=== PATIENT | male | born 2000 | race African-American/Black ===

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

== ENCOUNTER 2018-04-15 12:20 | Emergency (ER) | payer MEDICAID, OTHER ==
[2018-04-15 12:34] VITALS: BP 140/81
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
--- NOTE | 2018-04-15 13:16 | RADIOLOGY REPORT (SQ) ---
EXAM DESCRIPTION: WRIST LEFT 3 VIEWS COMPLETED DATE/TIME: 04/15/2018 1:05 pm REASON FOR STUDY: pain s/p fall COMPARISON: None. NUMBER OF VIEWS: Three views. TECHNIQUE: AP, lateral, and oblique radiographic images acquired of the left wrist. LIMITATIONS: None. FINDINGS: MINERALIZATION: Normal. BONES: No acute fracture or dislocation. No worrisome bone lesions. Normal alignment. SOFT TISSUES: No soft tissue swelling. No foreign body. OTHER: No other significant finding. IMPRESSION: NEGATIVE STUDY OF THE LEFT WRIST. NO RADIOGRAPHIC EVIDENCE OF ACUTE INJURY. TECHNICAL DOCUMENTATION: JOB ID: [id number] [employer]- All Rights Reserved Reading location - IP/workstation name: [email or web address]
== END 2018-04-15 13:38 | disposition home or self-care (01) ==
LOC: ER 12:20
DX: M25.532 Pain in left wrist (principal); M79.601 Pain in right arm; Y04.0XXA Assault by unarmed brawl or fight, initial encounter; W19.XXXA Unspecified fall, initial encounter; F17.200 Nicotine dependence, unspecified, uncomplicated
CPT/HCPCS: 99283; 73110; L3908 ×2

== ENCOUNTER 2018-04-19 22:12 | Emergency (ER) | payer MEDICAID ==
[2018-04-19 22:38] VITALS: BP 140/86
--- NOTE | 2018-04-19 23:21 | ER Document Report ---
ED General - General Chief Complaint: Psych Problem Stated Complaint: PSYCH EVAL Time Seen by Provider: 04/19/18 22:41 Cannot obtain history due to: Mentally challenged, Uncooperative Notes: Patient is a 18-year-old male with a past medical history of schizophrenia, currently off all medications who presents with concerns of increasing auditory and visual hallucinations. The patient himself was incapable providing appropriate history, I have seen him several times in the past and this is typical where he is unable to provide meaningful history. His mother is usually with him although she is not here this evening, apparently dropped him off the emergency department. She has not available for additional history. TRAVEL OUTSIDE OF THE [place] IN LAST 30 DAYS: No - Related Data Allergies/Adverse Reactions: No Known Allergies Allergy (Verified 04/15/18 12:25) Past Medical History - General Information source: Patient Cannot obtain history due to: Mentally challenged, Altered mental status - Social History Smoking Status: Unknown if Ever Smoked Frequency of alcohol use: None Drug Abuse: None Lives with: Parents Family History: Reviewed & Not Pertinent Pulmonary Medical History: Reports: Hx Pneumonia Renal/ Medical History: Denies: Hx Peritoneal Dialysis Psychiatric Medical History: Reports: Hx Attention Deficit Hyperactivity Disorder, Hx Bipolar Disorder, Hx Depression, Hx Schizophrenia - Immunizations Immunizations up to date: Yes Review of Systems - Review of Systems Notes: Constitutional: Negative for fever. HENT: Negative for sore throat. Eyes: Negative for visual changes. Cardiovascular: Negative for chest pain. Respiratory: Negative for shortness of breath. Gastrointestinal: Negative for abdominal pain, vomiting or diarrhea. Genitourinary: Negative for dysuria. Musculoskeletal: Negative for back pain. Skin: Negative for rash. Neurological: Negative for headaches, weakness or numbness. 10 point ROS negative except as marked above and in HPI. Physical Exam - Vital signs Vitals: Temp Pulse Resp BP Pulse Ox 99.2 F 72 16 140/86 H 98 04/19/18 22:36 04/19/18 22:36 04/19/18 22:36 04/19/18 22:36 04/19/18 22:36 Interpretation: Normal Notes: PHYSICAL EXAMINATION: GENERAL: Somewhat disheveled, agitated but in no overt distress HEAD: Atraumatic, normocephalic. EYES: Pupils equal round and reactive to light, extraocular movements intact, sclera anicteric, conjunctiva are normal. ENT: nares patent, oropharynx clear without exudates. Moist mucous membranes. NECK: Normal range of motion, supple without lymphadenopathy LUNGS: Breath sounds clear to auscultation bilaterally and equal. No wheezes rales or rhonchi. HEART: Regular rate and rhythm without murmurs ABDOMEN: Soft, nontender, normoactive bowel sounds. No guarding, no rebound. No masses appreciated. EXTREMITIES: Normal range of motion, no pitting or edema. No cyanosis. NEUROLOGICAL: No focal neurological deficits. Moves all extremities spontaneously and on command. PSYCH: Somewhat agitated, eyes are moving around rapidly, does not make appropriate eye contact. Seems very suspicious of me SKIN: Warm, Dry, normal turgor, no rashes or lesions noted. Course - Re-evaluation Re-evalutation: 04/19/18 23:20 Patient presents apparently with concerns of increasing hallucinations and paranoia although he is a profoundly poor historian, does not give me any meaningful information. His mother dropped him off although she is not available for history. The patient does appear extremely paranoid on exam, eyes starting around, does not speak in an intelligible fashion. Will proceed with medical screening labs, IVC will be completed, behavioral health consultation has been ordered. 04/20/18 01:27 The patient has become quite agitated, attempting to leave his room repeatedly, refusing to comply with instructions from security and staff. At this point he is acting in a manner that is dangerous to both himself and staff. He unfortunately required restraints, I am haloperidol 10 mg will also be administered. - Vital Signs Vital signs: Temp Pulse Resp BP Pulse Ox 99.2 F 72 16 140/86 H 98 04/19/18 22:36 04/19/18 22:36 04/19/18 22:36 04/19/18 22:36 04/19/18 22:36 - Laboratory Result Diagrams: 04/19/18 23:16 04/19/18 23:16 Laboratory results interpreted by me: 04/19/18 04/19/18 23:16 23:16 Hgb 12.6 L Hct 37.4 L Salicylates < 1.0 L Acetaminophen < 10 L - EKG Interpretation by Me Additional EKG results interpreted by me: 04/20/18 01:29 Sinus rhythm. Rate 53. No ST elevations or depressions. QTC is 399. Discharge - Discharge Clinical Impression: Agitation, Noncompliance with medication regimen Schizophrenia Qualifiers: Schizophrenia type: unspecified Qualified Code(s): F20.9 - Schizophrenia, unspecified
[2018-04-19 23:27] LABS: ABSOLUTE BASOPHILS # (AUTO) 0.1 10^3/uL (0.0-0.2); ABSOLUTE EOSINOPHILS # (AUTO) 0.1 10^3/uL (0.0-0.6); ABSOLUTE LYMPHOCYTES (AUTO) 1.2 10^3/uL (0.5-4.7); ABSOLUTE MONOCYTES (AUTO) 0.4 10^3/uL (0.1-1.4); ABSOLUTE NEUT (AUTO) 5.5 10^3/uL (1.7-8.2); BASOPHILS % (AUTO) 0.8 % (0-2); EOSINOPHILS % (AUTO) 0.7 % (0-6); HEMATOCRIT 37.4 % (37.9-51.0); HEMOGLOBIN 12.6 g/dL (13.5-17.0); LYMPHOCYTES % (AUTO) 16.5 % (13-45); MEAN CORPUSCULAR HEMOGLOBIN 27.5 pg (27.0-33.4); MEAN CORPUSCULAR HGB CONC 33.6 g/dL (32.0-36.0); MEAN CORPUSCULAR VOLUME 82 fl (80-97); PLATELET COUNT 202 10^3/uL (150-450); RED BLOOD COUNT 4.57 10^6/uL (4.35-5.55); RED CELL DISTRIBUTION WIDTH 12.6 % (11.5-14.0); TOTAL CELLS COUNTED % (AUTO) 100 %; WHITE BLOOD COUNT 7.1 10^3/uL (4.0-10.5)
[2018-04-19 23:42] LABS: ACETAMINOPHEN < 10 ug/mL (10-30); ALANINE AMINOTRANSFERASE 33 U/L (21-72); ALCOHOL < 10 mg/dL (NONE DETECTED); ALKALINE PHOSPHATASE 86 U/L (38-126); ANION GAP 9 (5-19); ASPARTATE AMINO TRANSFERASE 25 U/L (17-59); BILIRUBIN,DIRECT 0.2 mg/dL (0.0-0.4); BILIRUBIN,TOTAL 0.5 mg/dL (0.2-1.3); BLOOD UREA NITROGEN 10 mg/dL (7-20); CALCIUM 9.5 mg/dL (8.4-10.2); CARBON DIOXIDE 27 mmol/L (22-30); CHLORIDE 106 mmol/L (98-107); GLUCOSE 100 mg/dL (75-110); POTASSIUM 3.7 mmol/L (3.6-5.0); SALICYLATE < 1.0 mg/dL (2.0-20.0); SODIUM 142.4 mmol/L (137-145); TOTAL PROTEIN 7.1 g/dL (6.3-8.2)
[2018-04-20] MEDS ORDERED: HALOPERIDOL 5 MG TABLET PO ONE (01:24)
[2018-04-20] MEDS ORDERED: HALOPERIDOL LACTATE INJ 5 MG/1 ML VIAL IM ONE (01:26)
[2018-04-20] MEDS ORDERED: HALOPERIDOL LACTATE INJ 5 MG/1 ML VIAL ONE (01:27)
[2018-04-20 03:43] LABS: APPEARANCE,URINE SLIGHTLY-CLOUDY; BILIRUBIN,URINE SMALL (NEGATIVE); COLOR,URINE AMBER; GLUCOSE, URINE NEGATIVE (NEGATIVE); KETONES,URINE NEGATIVE (NEGATIVE); LEUKOCYTE ESTERASE,URINE NEGATIVE (NEGATIVE); NITRITE,URINE NEGATIVE (NEGATIVE); PROTEIN,URINE 30 mg/dL (NEGATIVE); URINE SPECIFIC GRAVITY 1.033
[2018-04-20 03:50] LABS: URINE AMPHETAMINES SCREEN NEGATIVE; URINE BARBITURATES SCREEN NEGATIVE; URINE BENZODIAZEPINES SCREEN NEGATIVE; URINE COCAINE SCREEN NEGATIVE; URINE MARIJUANA (THC) SCREEN UNCONFIRMED POSITIVE; URINE METHADONE SCREEN NEGATIVE; URINE PHENCYCLIDINE SCREEN NEGATIVE
--- NOTE | 2018-04-20 10:50 | ER Document Report ---
Doctor's Note Notes: 04/20/18 10:49 Rounds: Chart reviewed and patient sleeping. Patient reportedly has a history of schizophrenia and is currently on no medications. He is having auditory and visual hallucinations and sounds paranoid. He is agitated and actively psychotic upon arrival. Lab studies were all unremarkable except for being positive for marijuana. Vital signs were all essentially normal. Patient received Haldol to sedate him when he first arrived. Currently, he is not on any medications in the emergency department. Patient appears to be medically stable for transfer or discharge. David Lugo MD
[2018-04-20] MEDS ORDERED: HALOPERIDOL DECANOATE INJ 100 MG/1 ML VIAL IM ONE (11:28)
[2018-04-20] MEDS ORDERED: HALOPERIDOL 5 MG TABLET PO SCH (11:30)
[2018-04-20] MEDS ORDERED: BENZTROPINE MESYLATE 1 MG TABLET PO SCH (11:30)
--- NOTE | 2018-04-20 19:30 | EKG REPORT ---
SEVERITY:- ABNORMAL ECG - SINUS RHYTHM ST ELEVATION SUGGESTS PERICARDITIS : Confirmed by: Roni Redding 20-Apr-2018 19:29:38
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
== END 2018-04-20 15:59 | disposition home or self-care (01) ==
LOC: ER 22:12
DX: F20.9 Schizophrenia, unspecified (principal); Z91.14 Patient's other noncompliance with medication regimen; Z78.1 Physical restraint status; R45.1 Restlessness and agitation
CPT/HCPCS: 93005; 99285; 96372; 36415; 80307 ×4; 85025; 80053; 81001; 93010; J3490 ×2; J1631; J1630

== ENCOUNTER 2018-04-23 19:15 | Emergency (ER) | payer MEDICAID ==
[2018-04-23 19:25] VITALS: BP 142/99
[2018-04-23] MEDS ORDERED: PREDNISONE 20 MG TABLET PO ONE (19:40)
[2018-04-23] MEDS ORDERED: FAMOTIDINE 20 MG TABLET PO ONE (19:40)
[2018-04-23] MEDS ORDERED: DIPHENHYDRAMINE HCL 25 MG/10 ML UDC PO ONE (19:40)
--- NOTE | 2018-04-23 19:43 | ER Document Report ---
ED Medical Screen (RME) - General Chief Complaint: Breathing Difficulty Stated Complaint: DIFFICULTY BREATHING Time Seen by Provider: 04/23/18 19:29 TRAVEL OUTSIDE OF THE [place] IN LAST 30 DAYS: No - HPI Patient complains to provider of: tongue swelling Onset: Other - 18-year-old male with a history of schizophrenia who was treated with a Beconase shot of Haldol 2 days prior who presents for evaluation of sensation of shortness of breath as well as tongue and lip swelling. His mother notes that she believes this is related to the medication which she is given as she has looked it up online and believes that it was inappropriate. Denies any fevers or chills, lightheadedness, chest pain abdominal pain fevers or other symptoms. - Related Data Allergies/Adverse Reactions: No Known Allergies Allergy (Verified 04/15/18 12:25) Past Medical History Pulmonary Medical History: Reports: Hx Pneumonia Renal/ Medical History: Denies: Hx Peritoneal Dialysis Psychiatric Medical History: Reports: Hx Attention Deficit Hyperactivity Disorder, Hx Bipolar Disorder, Hx Depression, Hx Schizophrenia - Immunizations Immunizations up to date: Yes Physical Exam - Vital signs Vitals: Temp Pulse BP Pulse Ox 98.8 F 82 142/99 H 96 04/23/18 19:23 04/23/18 19:23 04/23/18 19:23 04/23/18 19:23 Course - Re-evaluation Re-evalutation: 04/23/18 19:42 This is a 18-year-old man who presents for lip swelling as well as tongue swelling in the setting of having received a decanoate shot 2 days prior. On examination the patient is able to retract and protrude the tongue as he sees fit however he keeps protruding his lip. His mother believes that it is swollen. She believes it is related to the medication. As this could potentially represent a reaction will treat as such. Believe this patient should undergo further evaluation and potential observation. Have deferred further testing or imaging at this time to secondary provider. I performed rapid medical screening examination. - Vital Signs Vital signs: Temp Pulse Resp BP Pulse Ox 98.8 F 82 142/99 H 96 04/23/18 19:23 04/23/18 19:23 04/23/18 19:23 04/23/18 19:23
[2018-04-23] MEDS ORDERED: IPRATROPIUM/ALBUTEROL 0.5-2.5 MG/3 ML AMPUL NEB ONE (21:19)
--- NOTE | 2018-04-23 21:25 | ER Document Report ---
ED General - General Chief Complaint: Breathing Difficulty Stated Complaint: DIFFICULTY BREATHING Time Seen by Provider: 04/23/18 19:29 Mode of Arrival: Ambulatory Information source: Patient, Relative Notes: 18-year-old male with schizophrenia presents with complaints of lip swelling, difficulty swallowing that occurred just prior to arrival. Mother is at the bedside and provides the history that the patient recently received a Haldol shot 2 days prior to arrival after being discharged home from [facility]. She was concerned that the allergic reaction was possibly to this shot. She does report that the patient has had a Haldol in the past. Patient denies any rash, itching, shortness of breath, coughing, vomiting. Prior to my arrival patient did receive Pepcid, Benadryl and Solu-Medrol. He does already report improvement of his symptoms. TRAVEL OUTSIDE OF THE [place] IN LAST 30 DAYS: No - HPI Onset: Just prior to arrival Onset/Duration: Sudden Quality of pain: No pain Associated symptoms: denies: Chest pain, Productive cough, Fever, Nausea, Vomiting, Shortness of breath Exacerbated by: Denies Relieved by: Denies Similar symptoms previously: No Recently seen / treated by doctor: Yes - Related Data Allergies/Adverse Reactions: No Known Allergies Allergy (Verified 04/15/18 12:25) Past Medical History - General Information source: Patient, Relative, [facility] - Social History Smoking Status: Current Every Day Smoker Cigarette use (# per day): Yes Smoking Education Provided: Yes - Smoking cessation counseling was provided for 4 minutes at the bedside Frequency of alcohol use: None Drug Abuse: None Family History: Reviewed & Not Pertinent Patient has suicidal ideation: No Patient has homicidal ideation: No Pulmonary Medical History: Reports: Hx Pneumonia Renal/ Medical History: Denies: Hx Peritoneal Dialysis Psychiatric Medical History: Reports: Hx Attention Deficit Hyperactivity Disorder, Hx Bipolar Disorder, Hx Depression, Hx Schizophrenia - Immunizations Immunizations up to date: Yes Review of Systems - Review of Systems Notes: REVIEW OF SYSTEMS: CONSTITUTIONAL : Denies fever, chills, or sweats. Denies recent illness. Denies weight loss, recent hospitalizations. EENT: Denies visual changes, eye pain. Denies sore throat, oral lesions, difficulty swallowing. CARDIOVASCULAR: Denies chest pain. Denies palpitations. Denies lower extremity edema. RESPIRATORY: Denies cough. Denies shortness of breath, wheezing. GASTROINTESTINAL: Denies abdominal pain or distention. Denies nausea, vomiting , or diarrhea. Denies blood in vomitus, stools, or per rectum. Denies black, tarry stools. Denies constipation. GENITOURINARY: Denies difficulty urinating, painful urination, frequency, blood in urine, testicular pain or penile discharge. MUSCULOSKELETAL: Denies back or neck pain or stiffness. Denies joint pain or swelling. SKIN: Denies rash, lesions or sores. HEMATOLOGIC : Denies easy bruising or bleeding. LYMPHATIC: Denies swollen glands. NEUROLOGICAL: Denies confusion or altered mental status. Denies loss of consciousness. Denies dizziness or lightheadedness. Denies headache. Denies weakness or paralysis. Denies problems difficulty with ambulation, slurred speech. Denies sensory loss, numbness, or tingling. Denies seizures. PSYCHIATRIC: Denies anxiety or stress. Denies depression, suicidal ideation, or Physical Exam - Vital signs Vitals: Temp Pulse BP Pulse Ox 98.8 F 82 142/99 H 96 04/23/18 19:23 04/23/18 19:23 04/23/18 19:23 04/23/18 19:23 - Notes Notes: PHYSICAL EXAMINATION: GENERAL: Well-appearing, well-nourished and in no acute distress. HEAD: Atraumatic, normocephalic. EYES: Pupils equal round and reactive to light, extraocular movements intact, sclera anicteric, conjunctiva are normal. ENT: Nares patent, oropharynx clear without exudates. Moist mucous membranes. Airway patent, no swelling of the uvula which is midline. NECK: Normal range of motion, supple without lymphadenopathy. No stridor LUNGS: Breath sounds clear to auscultation bilaterally and equal. No wheezes rales or rhonchi. HEART: Regular rate and rhythm without murmurs ABDOMEN: Soft, nontender, nondistended abdomen. No guarding, no rebound. No masses appreciated. Musculoskeletal: Normal range of motion, no pitting or edema. No cyanosis. NEUROLOGICAL: Cranial nerves grossly intact. Normal speech, normal gait. Normal sensory, motor exams PSYCH: Normal mood, normal affect. SKIN: Warm, Dry, normal turgor, no rashes or lesions noted. Course - Re-evaluation Re-evalutation: 04/24/18 04:33 18-year-old male presents with complaint of lip swelling, tongue swelling and difficulty swallowing that occurred just prior to arrival. Prior to my exam patient has already received Benadryl, Solu-Medrol and Pepcid. He reports improvement of his presenting symptoms. Vital signs stable upon arrival. Patient is in no acute distress. Lung sounds are clear. Patient is requesting a DuoNeb which was provided for him. Airway is patent, patient is handling secretions. There is no stridor on exam. Patient was observed in the emergency department for several hours without recurrence of tongue swelling. Patient was reevaluated and has remained stable, tolerating fluids. He is requesting discharge home. Patient was evaluated and treated as appropriate for the patient's presenting symptoms and complaint, with consideration of any critical or life threatening conditions that may be associated with their obtained history and exam as noted above. All results were discussed with patient. Patient provided the opportunity to ask questions, and express concerns. Patient was educated on treatments based on their presumed diagnosis as noted above. At this time we will discharge the patient with return precautions and follow-up recommendations. Verbal discharge instructions given a the bedside. Medication warnings reviewed. Patient is in agreement with this plan and has verbalized understanding of return precautions. After careful consideration I feel that that patient can be safely discharged from the emergency department, they were advised to followup with a primary care physician in 2-3 days. Dictation on this chart was performed using voice recognition software and may result in unintended grammatical, spelling, syntax or errors. - Vital Signs Vital signs: Temp Pulse Resp BP Pulse Ox 98.8 F 82 142/99 H 99 04/23/18 19:23 04/23/18 19:23 04/23/18 19:23 04/23/18 22:00 Discharge - Discharge Clinical Impression: Mild tongue swelling, Elevated blood pressure reading Allergic reaction Qualifiers: Encounter type: initial encounter Qualified Code(s): T78.40XA - Allergy, unspecified, initial encounter Schizophrenia Qualifiers: Schizophrenia type: other Qualified Code(s): F20.89 - Other schizophrenia Condition: Good Disposition: HOME, SELF-CARE Instructions: Acute Allergic Reaction ([facility]), Acute Allergic Reaction to Drugs ( [facility]), High Blood Pressure ([facility]) Additional Instructions: Follow up with your [id number] hours for further care or return to the ED IMMEDIATELY if symptoms worsen or you have any concerns. If you cannot afford to follow up with your primary care physician a list of low cost clinics have been provided at the end of your discharge papers as well. Most prescribed medications have multiple side effects. The safest thing to do is when filling your prescription speak to your pharmacist regarding possible interactions with your normal home medications and over the counter medications such as Ibuprofen, Tylenol, Benadryl. If you experience any symptoms that cause you discomfort or concern you should discontinue the medication immediately and return to the emergency room or call your primary care physician. Prescriptions: Diphenhydramine HCl [Benadryl] 25 mg PO Q8H PRN #20 capsule PRN Reason: Itching Famotidine [Pepcid 40 mg Tablet] 40 mg PO DAILY #5 tablet Lactose-Reduced Food [Ensure Active Protein-Muscle] 237 ml PO BID #14 bottle Forms: Elevated Blood Pressure
[2018-04-23] MEDS ORDERED: ALBUTEROL SULFATE HFA (90 MCG/PUFF) 8 GM MDI (1 MDI/ER DISP) IH PRN (22:22)
== END 2018-04-23 22:39 | disposition home or self-care (01) ==
LOC: ER 19:15
DX: T78.40XA Allergy, unspecified, initial encounter (principal); R22.0 Localized swelling, mass and lump, head; R13.10 Dysphagia, unspecified; X58.XXXA Exposure to other specified factors, initial encounter; F20.9 Schizophrenia, unspecified; R03.0 Elevated blood-pressure reading, without diagnosis of hypertension; F17.210 Nicotine dependence, cigarettes, uncomplicated; Z71.6 Tobacco abuse counseling
CPT/HCPCS: 99406; 94640; 99284; J3490 ×3; J7512; J7620

== ENCOUNTER 2018-04-26 19:48 | Emergency (ER) | payer MEDICAID ==
[2018-04-26 20:00] VITALS: BP 132/83
== END 2018-04-26 20:30 | disposition left against medical advice (07) ==
LOC: ER 19:48
DX: Z53.21 Procedure and treatment not carried out due to patient leaving prior to being seen by health care provider (principal)

== ENCOUNTER 2018-05-01 17:57 | Emergency (ER) | payer MEDICAID, OTHER ==
[2018-05-01 18:15] VITALS: BP 130/84
[2018-05-01] MEDS ORDERED: IPRATROPIUM/ALBUTEROL 0.5-2.5 MG/3 ML AMPUL NEB ONE (18:29)
--- NOTE | 2018-05-01 18:33 | ER Document Report ---
ED Respiratory Problem - General Chief Complaint: Breathing Difficulty Stated Complaint: DIFFICULTY BREATHING Time Seen by Provider: 05/01/18 18:28 Mode of Arrival: Ambulatory Information source: Patient Notes: Chief complaint: Shortness of breath History of complain:( obtained from----patient) 18 years old male with a history of schizophrenia takes Haldol once a month. And on Cogentin 1 mg a day. Mother thinks the Cogentin is not coping with the side effects by taking once a day. Because every day around 3:00 he complains of difficulty in breathing. Today he went into the shower and felt short of breath and then came out. And since then complaining of shortness of breath. No fever chills cough or wheezing. As above Onset: As above Duration: Gradual Severity: Moderate Quality: Continuous Context: As above Exacerbating factor and relieving factors: As above REVIEW OF SYSTEMS: CONSTITUTIONAL : Denies fever, chills, or sweats. Denies recent illness. EENT: Denies eye, ear, throat, or mouth pain or symptoms. Denies nasal or sinus congestion or discharge. Denies throat, tongue, or mouth swelling or difficulty swallowing. CARDIOVASCULAR: Denies chest pain. Denies palpitations or racing or irregular heart beat. Denies ankle edema. RESPIRATORY: Denies cough, cold, or chest congestion. Denies shortness of breath, difficulty breathing, or wheezing. GASTROINTESTINAL: Denies distention. Denies nausea, vomiting, or diarrhea. Denies blood in vomitus, stools, or per rectum. Denies black, tarry stools. Denies constipation. GENITOURINARY: Denies difficulty urinating, painful urination, burning, frequency, blood in urine, or discharge. FEMALE GENITOURINARY: Denies vaginal bleeding, heavy or abnormal periods, irregular periods. Denies vaginal discharge or odor. MUSCULOSKELETAL: Denies back or neck pain or stiffness. Denies joint pain or swelling. SKIN: Denies rash, lesions or sores. HEMATOLOGIC : Denies easy bruising or bleeding. LYMPHATIC: Denies swollen, enlarged glands. NEUROLOGICAL: Denies confusion or altered mental status. Denies passing out or loss of consciousness. Denies dizziness or lightheadedness. Denies headache. Denies weakness or paralysis or loss of use of either side. Denies problems with gait or speech. Denies sensory loss, numbness, or tingling. Denies seizures. PSYCHIATRIC: Denies anxiety or stress. Denies depression, suicidal ideation, or homicidal ideation. ALL OTHER SYSTEMS REVIEWED AND NEGATIVE. PHYSICAL EXAMINATION: GENERAL: Well-appearing, well-nourished and in no acute distress. HEAD: Atraumatic, normocephalic. EYES: Pupils equal round and reactive to light, extraocular movements intact, conjunctiva are normal. ENT: Nares patent, oropharynx clear without exudates. Moist mucous membranes. NECK: Normal range of motion, supple without lymphadenopathy LUNGS: Breath sounds clear to auscultation bilaterally and equal. No wheezes rales or rhonchi. HEART: Regular rate and rhythm without murmurs ABDOMEN: Soft, nontender, nondistended abdomen. No guarding, no rebound. No masses appreciated. Examination of genitals-deferred Musculoskeletal: Normal range of motion, no pitting or edema. No cyanosis. NEUROLOGICAL: Cranial nerves grossly intact. Normal speech, normal gait. Normal sensory, motor exams PSYCH: Normal mood, normal affect. SKIN: Warm, Dry, normal turgor, no rashes or lesions noted. Dictation was performed using [employer] voice recognition software TRAVEL OUTSIDE OF THE [place] IN LAST 30 DAYS: No - HPI Notes: Dictated - Related Data Allergies/Adverse Reactions: No Known Allergies Allergy (Verified 05/01/18 17:58) Past Medical History - General Information source: Patient - Social History Smoking Status: Never Smoker Frequency of alcohol use: None Lives with: Family Family History: Reviewed & Not Pertinent Patient has suicidal ideation: No Patient has homicidal ideation: No Pulmonary Medical History: Reports: Hx Pneumonia Renal/ Medical History: Denies: Hx Peritoneal Dialysis Psychiatric Medical History: Reports: Hx Attention Deficit Hyperactivity Disorder, Hx Bipolar Disorder, Hx Depression, Hx Schizophrenia - Immunizations Immunizations up to date: Yes Review of Systems - Review of Systems Notes: Dictated Physical Exam - Vital signs Vitals: Temp Pulse Resp BP Pulse Ox 98.3 F 56 L 18 130/84 H 99 05/01/18 18:13 05/01/18 18:13 05/01/18 18:13 05/01/18 18:13 05/01/18 18:13 - Notes Notes: Dictated Course - Re-evaluation Re-evalutation: 05/01/18 18:31 Given DuoNeb as a placebo - Vital Signs Vital signs: Temp Pulse Resp BP Pulse Ox 98.3 F 56 L 18 130/84 H 99 05/01/18 18:13 05/01/18 18:13 05/01/18 18:13 05/01/18 18:13 05/01/18 18:13 Discharge - Discharge Clinical Impression: Shortness of breath Schizophrenia Qualifiers: Schizophrenia type: other Qualified Code(s): F20.89 - Other schizophrenia; F20.8 - Other schizophrenia Condition: Fair Disposition: HOME, SELF-CARE Instructions: Schizophrenia ([facility]) Prescriptions: Benztropine Mesylate [Cogentin 1 mg Tablet] 1 tab PO BID #60 tab
== END 2018-05-01 18:44 | disposition home or self-care (01) ==
LOC: ER 17:57
DX: R06.02 Shortness of breath (principal); F20.89 Other schizophrenia; Z79.899 Other long term (current) drug therapy
CPT/HCPCS: 94640; 99284; J7620

== ENCOUNTER 2018-06-28 13:25 | Emergency (ER) | payer MEDICAID ==
--- NOTE | 2018-06-28 13:46 | ER Document Report ---
ED Medical Screen (RME) - General Chief Complaint: Allergic Reaction Stated Complaint: PSYCH Time Seen by Provider: 06/28/18 13:46 Notes: 18 years old male with psychotic symptoms presents today with not taking his medications today having sensation of tongue swelling and difficulty in breathing. Examination physically normal. TRAVEL OUTSIDE OF THE [place] IN LAST 30 DAYS: No - Related Data Allergies/Adverse Reactions: No Known Allergies Allergy (Verified 06/28/18 13:25) Past Medical History Pulmonary Medical History: Reports: Hx Pneumonia Renal/ Medical History: Denies: Hx Peritoneal Dialysis Psychiatric Medical History: Reports: Hx Attention Deficit Hyperactivity Disorder, Hx Bipolar Disorder, Hx Depression, Hx Schizophrenia - Immunizations Immunizations up to date: Yes Physical Exam - Vital signs Vitals: Temp Pulse Resp BP Pulse Ox 98.9 F 58 L 18 145/97 H 99 06/28/18 13:26 06/28/18 13:26 06/28/18 13:26 06/28/18 13:26 06/28/18 13:26 Course - Vital Signs Vital signs: Temp Pulse Resp BP Pulse Ox 98.9 F 58 L 18 145/97 H 99 06/28/18 13:26 06/28/18 13:26 06/28/18 13:26 06/28/18 13:26 06/28/18 13:26
[2018-06-28] MEDS ORDERED: DIPHENHYDRAMINE HCL 50 MG/ML VIAL IM ONE (14:22)
--- NOTE | 2018-06-28 14:51 | ER Document Report ---
ED General - General Chief Complaint: Allergic Reaction Stated Complaint: PSYCH Time Seen by Provider: 06/28/18 13:46 TRAVEL OUTSIDE OF THE [place] IN LAST 30 DAYS: No - HPI Patient complains to provider of: Medication reaction Notes: Patient coming in for evaluation of muscle spasms in his throat and his neck. Patient states ongoing since Sunday. Patient states started after he took a Haldol Decanoate shot. Patient states he has not been compliant with his Cogentin. Patient otherwise is ambulatory around the room speaking in normal sentences upon my evaluation. Mother states that this is occurred before. Patient otherwise looks to be no obvious distress denies any trauma fever chills nausea vomiting diarrhea. - Related Data Allergies/Adverse Reactions: No Known Allergies Allergy (Verified 06/28/18 13:25) Past Medical History - Social History Smoking Status: Never Smoker Frequency of alcohol use: None Drug Abuse: None Family History: Reviewed & Not Pertinent Patient has suicidal ideation: No Patient has homicidal ideation: No Pulmonary Medical History: Reports: Hx Pneumonia Renal/ Medical History: Denies: Hx Peritoneal Dialysis Psychiatric Medical History: Reports: Hx Attention Deficit Hyperactivity Disorder, Hx Bipolar Disorder, Hx Depression, Hx Schizophrenia - Immunizations Immunizations up to date: Yes Review of Systems - Review of Systems Constitutional: Other - Medication reaction EENT: No symptoms reported Cardiovascular: No symptoms reported Respiratory: No symptoms reported Gastrointestinal: No symptoms reported Genitourinary: No symptoms reported Male Genitourinary: No symptoms reported Musculoskeletal: No symptoms reported Skin: No symptoms reported Hematologic/Lymphatic: No symptoms reported Neurological/Psychological: No symptoms reported Physical Exam - Vital signs Vitals: Temp Pulse Resp BP Pulse Ox 98.9 F 58 L 18 145/97 H 99 06/28/18 13:26 06/28/18 13:26 06/28/18 13:26 06/28/18 13:26 06/28/18 13:26 Interpretation: Normal - General General appearance: Appears well, Alert - HEENT Head: Normocephalic, Atraumatic Eyes: Normal Pupils: PERRL - Respiratory Respiratory status: No respiratory distress Chest status: Nontender Breath sounds: Normal Chest palpation: Normal - Cardiovascular Rhythm: Regular Heart sounds: Normal auscultation Murmur: No - Abdominal Inspection: Normal Distension: No distension Bowel sounds: Normal Tenderness: Nontender Organomegaly: No organomegaly - Back Back: Normal, Nontender - Extremities General upper extremity: Normal inspection, Nontender, Normal color, Normal ROM , Normal temperature General lower extremity: Normal inspection, Nontender, Normal color, Normal ROM , Normal temperature, Normal weight bearing. No: Brad's sign - Neurological Neuro grossly intact: Yes Cognition: Normal Orientation: AAOx4 Cassandra Coma Scale Eye Opening: Spontaneous Joo Coma Scale Verbal: Oriented Joo Coma Scale Motor: Obeys Commands Cassandra Coma Scale Total: 15 Speech: Normal Motor strength normal: LUE, RUE, LLE, RLE Sensory: Normal - Psychological Associated symptoms: Normal affect, Normal mood - Skin Skin Temperature: Warm Skin Moisture: Dry Skin Color: Normal Course - Re-evaluation Re-evalutation: 06/28/18 15:39 Patient sleeping Easily arousable drinking able to take p.o. medications upon my reevaluation. Patient will be discharged home - Vital Signs Vital signs: Temp Pulse Resp BP Pulse Ox 98.9 F 58 L 18 145/97 H 99 06/28/18 13:26 06/28/18 13:26 06/28/18 13:26 06/28/18 13:26 06/28/18 13:26 Discharge - Discharge Clinical Impression: Adverse reaction to drug Qualifiers: Encounter type: initial encounter Qualified Code(s): T50.905A - Adverse effect of unspecified drugs, medicaments and biological substances, initial encounter Condition: Good Disposition: HOME, SELF-CARE Instructions: Medication Side Effects ([facility]) Additional Instructions: Follow-up with your primary care physician please take your Cogentin as prescribed.
[2018-06-28] MEDS ORDERED: BENZTROPINE MESYLATE 1 MG TABLET PO ONE (15:18)
[2018-06-28 15:51] VITALS: BP 138/97
== END 2018-06-28 15:51 | disposition home or self-care (01) ==
LOC: ER 13:25
DX: T50.905A Adverse effect of unspecified drugs, medicaments and biological substances, initial encounter (principal); X58.XXXA Exposure to other specified factors, initial encounter
CPT/HCPCS: 99283; 96372; J3490; J1200

== ENCOUNTER 2019-01-15 18:01 | Emergency (ER) | payer MEDICAID ==
[2019-01-15 18:09] VITALS: BP 142/92
--- NOTE | 2019-01-15 18:53 | ER Document Report ---
HPI - HPI Patient complains to provider of: Shortness of breath Time Seen by Provider: 01/15/19 18:40 Onset: This afternoon Onset/Duration: Gradual Pain Level: 5 Context: Patient states that he developed shortness of breath about an hour or 2 prior to arrival. Patient denies any cough or cold symptoms. Patient denies any history of lung problems. Patient states that sometimes he has difficulty breathing after he receives his Haldol injection. Patient has taken some Cogentin today to help with his symptoms as well as smoking marijuana. Associated Symptoms: Weakness. denies: Chest pain, Nonproductive cough, Productive cough, Fever, Headache Exacerbated by: Denies Relieved by: Denies Similar symptoms previously: Yes Recently seen / treated by doctor: No - ROS ROS below otherwise negative: Yes Systems Reviewed and Negative: Yes All other systems reviewed and negative - CONSTITUTIONAL Constitutional: DENIES: Fever, Chills - EENT EENT: DENIES: Sore Throat, Congestion - NEURO Neurology: DENIES: Headache - CARDIOVASCULAR Cardiovascular: DENIES: Chest pain - RESPIRATORY Respiratory: DENIES: Coughing Notes: Reports shortness of breath - GASTROINTESTINAL Gastrointestinal: DENIES: Nausea, Patient vomiting - MUSCULOSKELETAL Musculoskeletal: DENIES: Extremity pain, Back Pain - DERM Skin Color: Normal Skin Problems: None Past Medical History - General Information source: Patient, Parent - Social History Smoking Status: Never Smoker Frequency of alcohol use: None Drug Abuse: Marijuana Lives with: Family Family History: Reviewed & Not Pertinent Renal/ Medical History: Denies: Hx Peritoneal Dialysis Psychiatric Medical History: Reports: Hx Attention Deficit Hyperactivity Disorder, Hx Bipolar Disorder, Hx Depression, Hx Schizophrenia Surgical Hx: Negative - Immunizations Immunizations up to date: Yes Vertical Provider Document - CONSTITUTIONAL Agree With Documented VS: Yes Exam Limitations: No Limitations General Appearance: WD/WN, No Apparent Distress Notes: flat affect - INFECTION CONTROL TRAVEL OUTSIDE OF THE [place] IN LAST 30 DAYS: No - HEENT HEENT: Atraumatic, Normal ENT Exam, Normocephalic - NECK Neck: Normal Inspection, Supple. negative: Lymphadenopathy-Left - RESPIRATORY Respiratory: Breath Sounds Normal, No Respiratory Distress, Chest Non-Tender. negative: Rales, Rhonchi, Wheezing - CARDIOVASCULAR Cardiovascular: Regular Rate, Regular Rhythm, No Murmur. negative: Tachycardia - MUSCULOSKELETAL/EXTREMETIES Musculoskeletal/Extremeties: MAEW - NEURO Level of Consciousness: Awake, Alert, Appropriate Motor/Sensory: No Motor Deficit - DERM Integumentary: Warm, Dry, No Rash Course - Re-evaluation Re-evalutation: 01/15/19 18:52 Pt without any objective wheezing, cough dyspnea or tachypnea. Respirations unlabored. Patient advised that at this time he does not warrant a nebulizer treatment as he has no wheezing or cough. Patient insistent that he has shortness of breath and that a nebulizer will help him with his breathing. Mother requesting that a treatment be given here in the emergency department. 01/15/19 20:21 Patient's breath sounds clear bilaterally no tachypnea no increased effort of breathing. Chest x-ray reviewed, no concern for pneumothorax or pneumonia. Patient states that he feels like he needs an IV. Patient without any vomiting or diarrhea. No indication for IV fluids at this time. Patient encouraged to avoid use of marijuana in the future. - Vital Signs Vital signs: Temp Pulse Resp BP Pulse Ox 99.6 F 90 20 142/92 H 96 01/15/19 18:07 01/15/19 18:07 01/15/19 18:07 01/15/19 18:07 01/15/19 18:07 Discharge - Discharge Clinical Impression: Marijuana abuse, Shortness of breath Condition: Stable Disposition: HOME, SELF-CARE Additional Instructions: Return immediately for any new or worsening symptoms Followup with your primary care provider, call tomorrow to make a followup appointment Avoid use of marijuana in the future Increase oral fluids and stay well hydrated Prescriptions: Albuterol Sulfate [Proair Hfa Inhalation Aerosol 8.5 gm Mdi] 2 puff IH Q4 PRN #1 mdi PRN Reason: Inhaler,Assist Device,Accesory [Optichamber] 1 each MC Q4 PRN #1 each PRN Reason: Referrals: [facility] [Provider Group] - Follow up as needed
--- NOTE | 2019-01-15 19:25 | RADIOLOGY REPORT (SQ) ---
EXAM DESCRIPTION: CHEST 2 VIEWS COMPLETED DATE/TIME: 01/15/2019 7:05 pm REASON FOR STUDY: sob COMPARISON: None. EXAM PARAMETERS: NUMBER OF VIEWS: two views TECHNIQUE: Digital Frontal and Lateral radiographic views of the chest acquired. RADIATION DOSE: NA LIMITATIONS: none FINDINGS: LUNGS AND PLEURA: No consolidation, masses or pneumothorax. No significant pleural effusio n. MEDIASTINUM AND HILAR STRUCTURES: No masses or contour abnormalities. HEART AND VASCULAR STRUCTURES: Heart normal size. No evidence for failure. BONES: No acute findings. HARDWARE: None in the chest. OTHER: No other significant finding. IMPRESSION: NO ACUTE RADIOGRAPHIC FINDING IN THE CHEST. TECHNICAL DOCUMENTATION: JOB ID: [id number] [place]-72 2010 [employer]- All Rights Reserved Reading location - IP/workstation name: [email or web address] - [email or web address]
== END 2019-01-15 20:37 | disposition home or self-care (01) ==
LOC: ER 18:01
DX: F12.10 Cannabis abuse, uncomplicated (principal); R06.02 Shortness of breath; R53.1 Weakness; Z79.899 Other long term (current) drug therapy
CPT/HCPCS: 71046; 94640; 99284

== ENCOUNTER 2019-07-22 21:51 | Emergency (ER) | payer MEDICAID, OTHER ==
--- NOTE | 2019-07-23 00:35 | ER Document Report ---
ED Eye Complaint - General Chief Complaint: Eye Problem Stated Complaint: EYE ISSUE Time Seen by Provider: 07/23/19 00:04 Mode of Arrival: Ambulatory Information source: Patient Notes: This 19-year-old male presents to the emergency department with a history of "feels like my eyes are drawing upward". The patient states that he has had a similar episode in the past, denies headache or visual changes. Notes that he does play video games a lot and has no other associated complaints. TRAVEL OUTSIDE OF THE [place] IN LAST 30 DAYS: No - Related Data Allergies/Adverse Reactions: No Known Allergies Allergy (Verified 01/15/19 18:02) Past Medical History - Social History Smoking Status: Never Smoker Frequency of alcohol use: Occasional Drug Abuse: Marijuana Family History: Reviewed & Not Pertinent Patient has suicidal ideation: No Patient has homicidal ideation: No Pulmonary Medical History: Reports: Hx Pneumonia Renal/ Medical History: Denies: Hx Peritoneal Dialysis Psychiatric Medical History: Reports: Hx Attention Deficit Hyperactivity Disorder, Hx Bipolar Disorder, Hx Depression, Hx Schizophrenia - Immunizations Immunizations up to date: Yes Review of Systems - Review of Systems Notes: Constitutional: Negative for fever. HENT: Negative for sore throat. Eyes: + Eye complaint Cardiovascular: Negative for chest pain. Respiratory: Negative for shortness of breath. Gastrointestinal: Negative for abdominal pain, vomiting or diarrhea. Genitourinary: Negative for dysuria. Musculoskeletal: Negative for back pain. Skin: Negative for rash. Neurological: Negative for headaches, weakness or numbness. 10 point ROS negative except as marked above and in HPI. Physical Exam - Vital signs Vitals: Temp Pulse Resp BP Pulse Ox 98.7 F 66 16 136/81 H 97 07/22/19 22:06 07/22/19 22:06 07/22/19 22:06 07/22/19 22:06 07/22/19 22:06 - Notes Notes: PHYSICAL EXAMINATION: Physical Exam: General: Well-nourished well-developed in no acute distress HEENT: NC/AT, pupils equal round and reactive to light, extraocular motions intact, hypertropia, brief upward movement of the eyes at midline. Neck: supple, no adenopathy, no masses. Lungs: clear, no wheezing, no rales no rhonchi CVS: Regular rate and rhythm no murmur gallop or rub Abdomen: Soft active nontender, no masses, no hepatosplenomegaly Ext: No edema clubbing or cyanosis. Neuro: Alert and responsive, moving all 4 extremities on command, cranial nerves intact. Skin: Intact no open lesions, no rash PSYCH: Normal mood, normal affect. Course - Re-evaluation Re-evalutation: 07/23/19 00:33 Patient appears to have a strabismus, hyper tropia with him upward turning of the eyes at the midline point. I have explained to him that it may be related to fatigue or excessive video mosoe. I have suggested that a ophthalmology/optometry evaluation may be useful and suggested a anxiolytic dose of hydroxyzine. Patient is in agreement with that plan. - Vital Signs Vital signs: Temp Pulse Resp BP Pulse Ox 98.7 F 66 16 136/81 H 97 07/22/19 22:06 07/22/19 22:06 07/22/19 22:06 07/22/19 22:06 07/22/19 22:06 Discharge - Discharge Clinical Impression: Hypertropia Condition: Good Disposition: HOME, SELF-CARE Additional Instructions: You were seen tonight with hypertropia which is a type of strabismus related in malalignment of eye movement. Some people have a upward gaze or an outward gaze associated with being tired or stressed. I suggest that a follow-up appointment with an eye doctor would be useful. Rest and decrease video moose may also be associated with improved symptoms. Referrals: COLEMAN SINCLAIR DO [ACTIVE STAFF] - Follow up as needed
[2019-07-23] MEDS ORDERED: HYDROXYZINE HCL INJ 50 MG/1 ML VIAL IM ONE (00:36)
[2019-07-23 00:54] VITALS: BP 146/71
== END 2019-07-23 01:05 | disposition home or self-care (01) ==
LOC: ER 21:51
DX: H50.22 Vertical strabismus, left eye (principal); H50.21 Vertical strabismus, right eye
CPT/HCPCS: 99283; J3410

== ENCOUNTER 2019-08-01 14:43 | Emergency (ER) | payer MEDICAID ==
[2019-08-01 14:47] VITALS: BP 150/80
--- NOTE | 2019-08-01 15:13 | ER Document Report ---
HPI - HPI Time Seen by Provider: 08/01/19 14:54 Pain Level: Denies Notes: Patient is a 19-year-old male who presents for nonspecific complaints of eyes going to the top of his head and sitting there for some time before relaxing on their own. Patient states that this is been ongoing intermittently for 3 months. He was evaluated here 10 days ago and was told to see an eye doctor, but states that he has not done so. He has not had any acute changes in symptoms since his last visit. Patient states that he wants an IV put in with Benadryl to "drain out all of the benztropine." The last time he took a dose of this was 1 month ago. Patient states he does take daily Benadryl otherwise. He is able to eat and drink without difficulty. He is urinating normally. Denies drug allergies. No other recent illness. He has no eye redness or eye pain at rest. He does not wear contact lenses. No light sensitivity or foreign body sensation. Denies any headache, fever, head injury, neck pain, changes in vision/speech/mentation/hearing, URI, sore throat, chest pain, palpitations, syncope, cough, shortness of breath, wheeze, dyspnea, abdominal pain, nausea/vomiting/diarrhea, urinary retention, dysuria, hematuria, or rash. - ROS Systems Reviewed and Negative: Yes All other systems reviewed and negative - REPRODUCTIVE Reproductive: DENIES: : Past Medical History - Social History Smoking Status: Current Every Day Smoker Drug Abuse: Marijuana Family History: Reviewed & Not Pertinent Patient has suicidal ideation: No Patient has homicidal ideation: No Pulmonary Medical History: Reports: Hx Pneumonia Renal/ Medical History: Denies: Hx Peritoneal Dialysis Psychiatric Medical History: Reports: Hx Attention Deficit Hyperactivity Disorder, Hx Bipolar Disorder, Hx Depression, Hx Schizophrenia - Immunizations Immunizations up to date: Yes Vertical Provider Document - CONSTITUTIONAL Agree With Documented VS: Yes Notes: PHYSICAL EXAMINATION: GENERAL: Well-appearing, well-nourished and in no acute distress. HEAD: Atraumatic, normocephalic. EYES: Pupils equal round and reactive to light, extraocular movements intact, sclera anicteric, conjunctiva are normal. Non-tender. ENT: EAC clear b/l. TM's intact b/l without erythema, fluid, or perforation. Nares patent and without discharge. oropharynx clear without exudates. No tonsilar hypertrophy or erythema. Moist mucous membranes. No sinus tenderness. NECK: Normal range of motion, supple without lymphadenopathy LUNGS: Breath sounds clear to auscultation bilaterally and equal. No wheezes rales or rhonchi. HEART: Regular rate and rhythm without murmurs, rubs, gallops. Musculoskeletal: FROM to passive/active. Strength 5+/5. Extremities: No cyanosis, clubbing, or edema b/l. Peripheral pulses 2+. Capillary refill less than 3 seconds. NEUROLOGICAL: Cranial nerves grossly intact. Normal speech, normal gait. PSYCH: Normal mood, normal affect. SKIN: Warm, Dry, normal turgor, no rashes or lesions noted. - INFECTION CONTROL TRAVEL OUTSIDE OF THE [place] IN LAST 30 DAYS: No Course - Re-evaluation Re-evalutation: 08/01/19 15:15 I did review the case with Dr. Whitaker who is in agreement with dispo/plan and no need for further management in the ED today. Patient is an afebrile, well-hydrated, 19-year-old male who presents to the emergency department with nonspecific eye discomfort b/l. He is asymptomatic at this time. Vitals are acceptable without significant tachycardia, tachypnea, or hypoxia. PE is otherwise unremarkable. Patient is nontoxic-appearing and is able to tolerate p.o. without difficulty. No labs or imaging warranted. Visual acuity acceptable. Low suspicion for any retained corneal or lid foreign body, deep space infection including orbital cellulitis/abscess, acute glaucoma, penetrating globe injury, retinal detachment, meningitis, sepsis, fracture, compartment syndrome. Patient was very demanding about having an IV with Benadryl placed to 'drain' his Cogentin. I did review that the half-life of Cogentin is 12 to 24 hours. He has not had a dose in over a month. Reviewed wi th patient I do not have any justification as to why I would be putting an IV in his arm with Benadryl at this time. He does take Benadryl orally otherwise. Conservative measures otherwise for symptoms with proper handwashing. Recheck with your PCM in 3-5 days. Stressed importance of f/u with Ophtho which he will do. Return to the ED with any worsening/concerning symptoms otherwise as reviewed in discharge. Patient is in agreement. - Vital Signs Vital signs: Temp Pulse Resp BP Pulse Ox 98.4 F 66 18 150/80 H 98 08/01/19 14:46 08/01/19 14:46 08/01/19 14:46 08/01/19 14:46 08/01/19 14:46 Discharge - Discharge Clinical Impression: Eye discomfort Qualifiers: Laterality: bilateral Qualified Code(s): H57.13 - Ocular pain, bilateral Condition: Stable Disposition: HOME, SELF-CARE Additional Instructions: Keep eyes clean Avoid scratching/touching eyes Wash hands regularly Use eye drops as directed Maintain adequate fluid intake tylenol/ibuprofen as needed over the counter cold medication as needed for symptoms F/u: with your PCM in 3-5 days for a recheck F/u with the eye doctor in 3-5 days. Return to the ED with any worsening symptoms and/or development of fever, headache, changes in vision, eye pain, worsening eye redness, redness around the eyes, purulent discharge, sore throat, facial swelling, neck pain/stiffness, becca st pain, palpitations, syncope, shortness of breath, trouble breathing, abdominal pain, n/v/d, blood in stool/urine, dysuria, or other worsening symptoms that are concerning to you. Forms: Elevated Blood Pressure, Smoking Cessation Education Referrals: MARIA LUISA CHAMBERLAIN MD [ACTIVE STAFF] - Follow up in 3-5 days
== END 2019-08-01 15:24 | disposition home or self-care (01) ==
LOC: ER 14:43
DX: H57.13 Ocular pain, bilateral (principal); H57.89 Other specified disorders of eye and adnexa; F17.200 Nicotine dependence, unspecified, uncomplicated
CPT/HCPCS: 99283

== ENCOUNTER 2019-11-12 21:57 | Emergency (ER) | payer MEDICAID ==
--- NOTE | 2019-11-12 23:25 | ER Document Report ---
ED General - General Chief Complaint: High Blood Pressure Stated Complaint: DIZZY AND HIGH BLOOD PRESSURE Time Seen by Provider: 11/12/19 23:24 Mode of Arrival: Ambulatory Information source: Patient TRAVEL OUTSIDE OF THE [place] IN LAST 30 DAYS: No - HPI Onset/Duration: Gradual Quality of pain: No pain Severity: Moderate Pain Level: Denies Associated symptoms: Other - Auditory and Visual Hallucinations Exacerbated by: Denies Relieved by: Denies Similar symptoms previously: Yes - patient has been seen in the ER for this before. Recently seen / treated by doctor: No Notes: 19 year old male with a history of Bipolar, Depression, Schizophrenia, PTSD here in the ER because he says he is hearing and seeing things. The patient does not want to speak to me very much but he says he has been hearing and seeing things. When asked if any of the voices are telling him to harm himself he says "sometimes." Looking back through previous ER visits, the patient has presented in a similar fashion. The patient also says he has been feeling dizzy like he may pass out. - Related Data Allergies/Adverse Reactions: No Known Allergies Allergy (Verified 08/01/19 14:54) Past Medical History - General Information source: Patient - Social History Smoking Status: Current Every Day Smoker Chew tobacco use (# tins/day): No Frequency of alcohol use: None Drug Abuse: Marijuana Family History: Reviewed & Not Pertinent Patient has homicidal ideation: No Pulmonary Medical History: Reports: Hx Pneumonia Renal/ Medical History: Denies: Hx Peritoneal Dialysis Psychiatric Medical History: Reports: Hx Attention Deficit Hyperactivity Disorder, Hx Bipolar Disorder, Hx Depression, Hx Schizophrenia - Immunizations Immunizations up to date: Yes Review of Systems - Review of Systems Constitutional: No symptoms reported EENT: No symptoms reported Cardiovascular: Dizziness Respiratory: No symptoms reported Gastrointestinal: No symptoms reported Genitourinary: No symptoms reported Male Genitourinary: No symptoms reported Musculoskeletal: No symptoms reported Skin: No symptoms reported Hematologic/Lymphatic: No symptoms reported Neurological/Psychological: Hallucinations - Auditory and Visual -: Yes All other systems reviewed and negative Physical Exam - Vital signs Vitals: Temp Pulse Resp BP Pulse Ox 99.0 F 76 14 154/92 H 97 11/12/19 22:02 11/12/19 22:02 11/12/19 22:02 11/12/19 22:02 11/12/19 22:02 - Notes Notes: GENERAL: Well-appearing, well-nourished and in no acute distress. HEAD: Atraumatic, normocephalic. EYES: Pupils equal round and reactive to light, extraocular movements intact, sclera anicteric, conjunctiva are normal. ENT: External ears normal, nares patent, oropharynx clear without exudates. Moist mucous membranes. NECK: Normal range of motion, supple without lymphadenopathy or JVD. LUNGS: Breath sounds clear to auscultation bilaterally and equal. No wheezes rales or rhonchi. HEART: Regular rate and rhythm without murmurs, rubs or gallops. ABDOMEN: Soft, nontender, normoactive bowel sounds. No guarding, no rebound. No masses appreciated. EXTREMITIES: Normal range of motion, no pitting or edema. No clubbing or cyanosis. NEUROLOGICAL: Cranial nerves II through XII grossly intact. Normal speech, normal gait. PSYCH: Flat affect, depressed mood, normal affect. SKIN: Warm, Dry, normal turgor, no rashes or lesions noted. Course - Re-evaluation Re-evalutation: 11/13/19 00:25 The patient is here in the ER because he has been having auditory and visual hallucination. The patient also says he feels dizzy but his lab work, EKG, and physical exam are unremarkable. Patient has some passive SI from the auditory hallucinations. Patient would like to wait until morning to see mental health. Patient is medically cleared at this time. - Vital Signs Vital signs: Temp Pulse Resp BP Pulse Ox 99.0 F 76 14 139/90 H 97 11/12/19 22:07 11/12/19 22:02 11/12/19 23:03 11/12/19 23:03 11/12/19 23:03 - Laboratory Result Diagrams: 11/12/19 23:52 11/12/19 23:52 Laboratory results interpreted by me: 11/12/19 23:52 Salicylates < 1.0 L Acetaminophen < 10 L - EKG Interpretation by [facility] EKG shows normal: Sinus rhythm, Coulters, Intervals, QRS Complexes, ST-T Waves Rate: Normal Rhythm: NSR Discharge - Discharge Clinical Impression: Hallucinations Condition: Stable Disposition: OTHER
[2019-11-12 23:50] LABS: APPEARANCE,URINE CLEAR; BILIRUBIN,URINE NEGATIVE (NEGATIVE); COLOR,URINE STRAW; GLUCOSE, URINE NEGATIVE (NEGATIVE); KETONES,URINE NEGATIVE (NEGATIVE); LEUKOCYTE ESTERASE,URINE NEGATIVE (NEGATIVE); NITRITE,URINE NEGATIVE (NEGATIVE); PROTEIN,URINE NEGATIVE (NEGATIVE); URINE SPECIFIC GRAVITY 1.005; UROBILINOGEN,URINE NEGATIVE mg/dL (<2.0)
[2019-11-13] LABS: ABSOLUTE EOSINOPHILS # (AUTO) 0.3 10^3/uL (0.0-0.6); ABSOLUTE LYMPHOCYTES (AUTO) 1.9 10^3/uL (0.5-4.7); ABSOLUTE MONOCYTES (AUTO) 0.6 10^3/uL (0.1-1.4); ABSOLUTE NEUT (AUTO) 4.6 10^3/uL (1.7-8.2); BASOPHILS % (AUTO) 0.6 % (0-2); EOSINOPHILS % (AUTO) 3.6 % (0-6); HEMATOCRIT 39.3 % (37.9-51.0); HEMOGLOBIN 13.6 g/dL (13.5-17.0); LYMPHOCYTES % (AUTO) 25.8 % (13-45); MEAN CORPUSCULAR HEMOGLOBIN 28.6 pg (27.0-33.4); MEAN CORPUSCULAR HGB CONC 34.5 g/dL (32.0-36.0); MEAN CORPUSCULAR VOLUME 83 fl (80-97); MONOCYTES % (AUTO) 7.6 % (3-13); PLATELET COUNT 226 10^3/uL (150-450); RED BLOOD COUNT 4.74 10^6/uL (4.35-5.55); SEGMENTED NEUTROPHILS % (AUTO) 62.4 % (42-78); TOTAL CELLS COUNTED % (AUTO) 100 %; WHITE BLOOD COUNT 7.3 10^3/uL (4.0-10.5)
[2019-11-13 00:07] LABS: URINE AMPHETAMINES SCREEN NEGATIVE; URINE BARBITURATES SCREEN NEGATIVE; URINE BENZODIAZEPINES SCREEN NEGATIVE; URINE COCAINE SCREEN NEGATIVE; URINE METHADONE SCREEN NEGATIVE; URINE PHENCYCLIDINE SCREEN NEGATIVE
[2019-11-13 00:08] LABS: URINE MARIJUANA (THC) SCREEN UNCONFIRMED POSITIVE
[2019-11-13 00:18] LABS: ALKALINE PHOSPHATASE 82 U/L (38-126); ANION GAP 6 (5-19); ASPARTATE AMINO TRANSFERASE 24 U/L (17-59); BILIRUBIN,TOTAL 0.3 mg/dL (0.2-1.3); BLOOD UREA NITROGEN 15 mg/dL (7-20); CALCIUM 9.6 mg/dL (8.4-10.2); CARBON DIOXIDE 30 mmol/L (22-30); CHLORIDE 103 mmol/L (98-107); GLUCOSE 92 mg/dL (75-110); POTASSIUM 3.8 mmol/L (3.6-5.0); TOTAL PROTEIN 6.9 g/dL (6.3-8.2)
[2019-11-13 00:23] LABS: ACETAMINOPHEN < 10 ug/mL (10-30); ALCOHOL < 10 mg/dL (NONE DETECTED); SALICYLATE < 1.0 mg/dL (2.0-20.0)
[2019-11-13 11:26] VITALS: BP 167/96
--- NOTE | 2019-11-13 18:26 | EKG REPORT ---
SEVERITY:- NORMAL ECG - SINUS RHYTHM ST ELEV, PROBABLE NORMAL EARLY REPOL PATTERN : Confirmed by: Sapphire Yun MD 13-Nov-2019 18:25:34
== END 2019-11-13 11:26 | disposition home or self-care (01) ==
LOC: ER 21:57
DX: R44.0 Auditory hallucinations (principal); R44.1 Visual hallucinations; R42 Dizziness and giddiness; F17.200 Nicotine dependence, unspecified, uncomplicated; R45.851 Suicidal ideations
CPT/HCPCS: 36415; 80053; 80307; 81001; 85025; 93005; 93010; 99285

== ENCOUNTER 2019-11-17 19:55 | Emergency (ER) | payer MEDICAID ==
--- NOTE | 2019-11-17 23:15 | ER Document Report ---
ED Eye Complaint - General Chief Complaint: Eye Pain Stated Complaint: EYE PAIN Time Seen by Provider: 11/17/19 23:00 Primary Care Provider: ANGI MCGARRY PA-C [Primary Care Provider] - Follow up as needed TRAVEL OUTSIDE OF THE [place] IN LAST 30 DAYS: No - Related Data Allergies/Adverse Reactions: No Known Allergies Allergy (Verified 11/13/19 01:19) Home Medications: cogentin Past Medical History - Social History Smoking Status: Never Smoker Chew tobacco use (# tins/day): No Drug Abuse: Marijuana Family History: Reviewed & Not Pertinent Patient has homicidal ideation: No Pulmonary Medical History: Reports: Hx Pneumonia Renal/ Medical History: Denies: Hx Peritoneal Dialysis Psychiatric Medical History: Reports: Hx Attention Deficit Hyperactivity Disorder, Hx Bipolar Disorder, Hx Depression, Hx Schizophrenia - Immunizations Immunizations up to date: Yes Physical Exam - Vital signs Vitals: Temp Pulse Resp BP Pulse Ox 98.9 F 88 18 139/84 H 96 11/17/19 20:07 11/17/19 20:07 11/17/19 20:07 11/17/19 20:07 11/17/19 20:07 Course - Vital Signs Vital signs: Temp Pulse Resp BP Pulse Ox 98.9 F 88 18 139/84 H 96 11/17/19 20:29 11/17/19 20:07 11/17/19 20:07 11/17/19 20:07 11/17/19 20:07 Discharge - Discharge Referrals: ANGI MCGARRY PA-C [Primary Care Provider] - Follow up as needed
[2019-11-17] MEDS ORDERED: HYDROXYZINE HCL INJ 50 MG/1 ML VIAL IM ONE (23:20)
--- NOTE | 2019-11-17 23:25 | ER Document Report ---
ED Eye Complaint - General Chief Complaint: Eye Pain Stated Complaint: EYE PAIN Time Seen by Provider: 11/17/19 23:00 Primary Care Provider: ANGI MCGARRY PA-C [Primary Care Provider] - Follow up as needed Notes: 19-year-old male presents to the emergency department with complaint of eyes which rolled up in his head without his control. He is a schizophrenic and takes Cogentin as well as long-acting antipsychotic medications IM. 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 He denies loss of vision or true eye pain. He has been seen in the emergency department on one prior occasion with similar symptoms. He was given a IM dose of hydroxyzine as anticholinergic with improvement. TRAVEL OUTSIDE OF THE [place] IN LAST 30 DAYS: No - Related Data Allergies/Adverse Reactions: No Known Allergies Allergy (Verified 11/13/19 01:19) Home Medications: cogentin Past Medical History - Social History Smoking Status: Never Smoker Chew tobacco use (# tins/day): No Drug Abuse: Marijuana Family History: Reviewed & Not Pertinent Patient has homicidal ideation: No Pulmonary Medical History: Reports: Hx Pneumonia Renal/ Medical History: Denies: Hx Peritoneal Dialysis Psychiatric Medical History: Reports: Hx Attention Deficit Hyperactivity Disorder, Hx Bipolar Disorder, Hx Depression, Hx Schizophrenia - Immunizations Immunizations up to date: Yes Review of Systems - Review of Systems Notes: Constitutional: Negative for fever. HENT: Negative for sore throat. Eyes: + Eye complaint, see HPI Cardiovascular: Negative for chest pain. Respiratory: Negative for shortness of breath. Gastrointestinal: Negative for abdominal pain, vomiting or diarrhea. Genitourinary: Negative for dysuria. Musculoskeletal: Negative for back pain. Skin: Negative for rash. Neurological: Negative for headaches, weakness or numbness. 10 point ROS negative except as marked above and in HPI. Physical Exam - Vital signs Vitals: Temp Pulse Resp BP Pulse Ox 98.9 F 88 18 139/84 H 96 11/17/19 20:07 11/17/19 20:07 11/17/19 20:07 11/17/19 20:07 11/17/19 20:07 - Notes Notes: PHYSICAL EXAMINATION: Physical Exam: General: Well-nourished well-developed 19-year-old male in no acute distress HEENT: NC/AT, pupils equal round and reactive to light, MM moist,nares clear, oropharynx clear, airway patent Conjunctiva pink, sclera clear, extraocular motions intact, no tenderness around the orbits or over the globes. Neck: supple, no adenopathy, no masses. Good range of motion Lungs: clear, no wheezing, no rales no rhonchi CVS: Regular rate and rhythm no murmur gallop or rub Abdomen: Soft, active, nontender, no masses, no hepatosplenomegaly Ext: No edema, clubbing or cyanosis. Neuro: Alert and responsive, moving all 4 extremities on command, cranial nerves intact, no focal findings Skin: Intact no open lesions, no rash PSYCH: Slightly agitated, demanding an IV for IV medications, denies visual hallucinations, denies suicidal or homicidal ideation. Course - Vital Signs Vital signs: Temp Pulse Resp BP Pulse Ox 98.9 F 88 18 139/84 H 96 11/17/19 20:29 11/17/19 20:07 11/17/19 20:07 11/17/19 20:07 11/17/19 20:07 Discharge - Discharge Clinical Impression: Dystonic drug reaction, Oculogyric crisis Condition: Good Disposition: HOME, SELF-CARE Additional Instructions: You were seen today in the emergency department with complaint of eyes deviating upward which may be an adverse reaction to your medication. Please continue the Cogentin and follow-up with your behavioral health outpatient clinic with regards to adjustment of the dosage. Please drink plenty of water if you are outside in the heat. Follow-up as directed. HOME CARE INSTRUCTIONS & INFORMATION: Thank you for choosing us for your medical needs. We hope you're satisfied with the care you received. After you leave, you must properly care for your problem and, at the same time, observe its progress. Any condition can change. Some illnesses can change rapidly over hours or days. If your condition worsens, return to the Emergency Department or see your physician promptly. ABOUT YOUR X-RAYS AND EKG'S: If you had an EKG or X-rays taken, they have been read by the Emergency Physician. The X-rays and EKG's will also be read by a Radiologist or Automobile Contract Clerk within 24 hours. If discrepancies are noted, you will be notified by telephone. Please be certain the ED has a correct telephone number & address where you can be reached. Also, realize that some fractures or abnormalities do not show up on initial X-rays. If your symptoms continue, see your physician. ABOUT YOUR LABORATORY TEST: If you had laboratory tests, the results have been reviewed by the Emergency Physician. Some test results (for example cultures) may not be available for several days. You will be contacted if any test result shows you need additional treatment. Please be certain the ED has a correct telephone number and address where you can be reached. ABOUT YOUR MEDICATIONS: You will receive instructions on how to take your medicine on the prescription label you receive. Additional information may be provided by the Pharmacy. If you have questions afterwards, call the ED for clarification or further instructions. Some prescribed medications may cause drowsiness. Do not perform tasks such as driving a car or operating machinery without consulting your Pharmacist. If you feel you need a refill of pain medication, your condition will need re-evaluation. Please do not call for a refill of any medication. ABOUT YOUR SIGNATURE: Signature of this document acknowledges to followin. Understanding that you received emergency treatment and that you may be released before al medical problems are known or treated. Please be certain the ED has a correct phone number & address where you can be reached. 2. Acknowledgement that you will arrange for follow-up care as recommended. 3. Authorization for the Emergency Physician to provide information to your follow-up Physician in order to maximize your care. AT ANY TIME, IF YOUR SYMPTOMS CHANGE SIGNIFICANTLY OR WORSEN OR YOU DEVELOP NEW SYMPTOMS, RETURN TO THE EMERGENCY DEPARTMENT IMMEDIATELY FOR RE-EVALUATION. OUR GOAL IS TO PROVIDE EXCELLENT MEDICAL CARE! WE HOPE THAT WE HAVE MET YOUR EXPECTATIONS DURING YOUR EMERGENCY DEPARTMENT VISIT AND THAT YOU FEEL YOU HAVE RECEIVED EXCELLENT CARE! Referrals: ANGI MCGARRY PA-C [Primary Care Provider] - Follow up as needed
[2019-11-18 00:06] VITALS: BP 137/76
== END 2019-11-18 00:06 | disposition home or self-care (01) ==
LOC: ER 19:55
DX: G24.09 Other drug induced dystonia (principal); H51.8 Other specified disorders of binocular movement
CPT/HCPCS: 99283; 96372; J3410

== ENCOUNTER 2020-06-04 03:07 | Emergency (ER) | payer MEDICAID ==
[2020-06-04 04:55] LABS: ABSOLUTE MONOCYTES (AUTO) 0.4 10^3/uL (0.1-1.4); ABSOLUTE NEUT (AUTO) 6.3 10^3/uL (1.7-8.2); BASOPHILS % (AUTO) 0.5 % (0-2); EOSINOPHILS % (AUTO) 0.4 % (0-6); HEMATOCRIT 43.3 % (37.9-51.0); HEMOGLOBIN 14.6 g/dL (13.5-17.0); LYMPHOCYTES % (AUTO) 12.6 % (13-45); MEAN CORPUSCULAR HEMOGLOBIN 27.5 pg (27.0-33.4); MEAN CORPUSCULAR HGB CONC 33.6 g/dL (32.0-36.0); MEAN CORPUSCULAR VOLUME 82 fl (80-97); MONOCYTES % (AUTO) 5.1 % (3-13); PLATELET COUNT 207 10^3/uL (150-450); RED CELL DISTRIBUTION WIDTH 12.8 % (11.5-14.0); SEGMENTED NEUTROPHILS % (AUTO) 81.4 % (42-78); TOTAL CELLS COUNTED % (AUTO) 100 %; WHITE BLOOD COUNT 7.7 10^3/uL (4.0-10.5)
[2020-06-04 05:14] LABS: ALBUMIN 4.9 g/dL (3.5-5.0); ALKALINE PHOSPHATASE 97 U/L (38-126); ANION GAP 10 (5-19); ASPARTATE AMINO TRANSFERASE 30 U/L (17-59); BILIRUBIN,TOTAL 0.6 mg/dL (0.2-1.3); BLOOD UREA NITROGEN 19 mg/dL (7-20); CALCIUM 10.1 mg/dL (8.4-10.2); CARBON DIOXIDE 27 mmol/L (22-30); CHLORIDE 103 mmol/L (98-107); GLUCOSE 105 mg/dL (75-110); POTASSIUM 4.1 mmol/L (3.6-5.0)
[2020-06-04 05:15] LABS: BILIRUBIN,DIRECT 0.2 mg/dL (0.0-0.4)
--- NOTE | 2020-06-04 05:18 | ER Document Report ---
ED Psych Disorder / Suicide - General TRAVEL OUTSIDE OF THE [place] IN LAST 30 DAYS: No <RILEY WARD - Last Filed: 06/04/20 05:48> <EFREN SWENSON - Last Filed: 06/05/20 13:52> <STEPHANIA KHOURY - Last Filed: 06/05/20 14:50> - General Chief Complaint: Psych Problem Stated Complaint: PSYCH Time Seen by Provider: 06/04/20 04:57 Primary Care Provider: [facility] [Outside] - Follow up as needed [facility] [Outside] - Follow up as needed Notes: CHIEF COMPLAINT: Psychiatric work-up HPI: 20-year-old male with history of schizophrenia brought in by EMS for evaluation of hallucinations. Patient believes there are demons in his house. History is obtained from the patient and is limited by the patient's mental status. History is also obtained from the records that were reviewed. Patient has a longstanding history of schizophrenia lives with his mother, comes in every few years for similar complaints. Patient denies fever nausea vomiting. Does complain of right shoulder pain and is requesting "an injection for the pain". ROS: See HPI - all other systems were reviewed and are otherwise negative Constitutional: no fever Eyes: no drainage, no blurred vision ENT: no runny nose, no sore throat Cardiovascular: no chest pain Resp: no SOB, no cough GI: no vomiting, no diarrhea, no abdominal pain : no dysuria Integumentary: no rash Allergy: no hives Musculoskeletal: + extremity pain or swelling Neurological: no numbness/tingling, no weakness MEDICATIONS: I agree with the patient medications as charted by the RN. ALLERGIES: I agree with the allergies as charted by the RN. PAST MEDICAL HISTORY/PAST SURGICAL HISTORY: Reviewed and agree as charted by RN. SOCIAL HISTORY: Reviewed and agree as charted by RN. FAMILY HISTORY: No significant familial comorbid conditions directly related to patient complaint EXAM: Reviewed vital signs as charted by RN. CONSTITUTIONAL: Alert and oriented and responds in well nourished specimens no specimens appropriately to questions. Well-appearing; well-nourished HEAD: Normocephalic; atraumatic EYES: PERRL; Conjunctivae clear, sclerae non-icteric ENT: normal nose; no rhinorrhea; moist mucous membranes; pharynx without lesions noted, no uvula edema or deviation, no tonsillar hypertrophy, phonation normal NECK: Supple without meningismus; non-tender; no cervical lymphadenopathy, no masses CARD: RRR; no murmurs, no clicks, no rubs, no gallops; symmetric distal pulses RESP: Normal chest excursion without splinting or tachypnea; breath sounds clear and equal bilaterally; no wheezes, no rhonchi, no rales, pulse oximetry 98% on room air not hypoxic ABD/GI: Normal bowel sounds; non-distended; soft, non-tender, no rebound, no guarding; no palpable organomegaly or masses. BACK: The back appears normal and is non-tender to palpation, there is no CVA tenderness EXT: Normal ROM in all joints; non-tender to palpation; no cyanosis, no effusions, no edema SKIN: Normal color for age and race; warm; dry; good turgor; no acute lesions noted NEURO: Moves all extremities equally; Motor and sensory function intact PSYCH: The patient's mood and manner are inappropriate. Patient states there are demons in his home. Patient is very paranoid. Flat affect. Grooming and personal hygiene are appropriate. MDM: 20-year-old male presenting for possible hallucinations. Has been seen previously for similar. Noncompliant with his medications. Patient told the nurse that "it is cold out and I am homeless". He does appear somewhat flat and paranoid. (RILEY WARD) - Related Data Allergies/Adverse Reactions: No Known Allergies Allergy (Verified 11/13/19 01:19) Past Medical History - Social History Smoking Status: Unknown if Ever Smoked Frequency of alcohol use: denies Drug Abuse: Marijuana Family History: Reviewed & Not Pertinent Pulmonary Medical History: Reports: Hx Pneumonia Renal/ Medical History: Denies: Hx Peritoneal Dialysis Psychiatric Medical History: Reports: Hx Attention Deficit Hyperactivity Disorder, Hx Bipolar Disorder, Hx Depression, Hx Schizophrenia - Immunizations Immunizations up to date: Yes <RILEY WARD - Last Filed: 06/04/20 05:48> Physical Exam - Vital signs Vitals: Temp Pulse Resp BP Pulse Ox 97.6 F 78 16 147/88 H 98 06/04/20 03:32 06/04/20 03:32 06/04/20 03:32 06/04/20 03:32 06/04/20 03:32 Course - Laboratory Result Diagrams: 06/04/20 04:35 06/04/20 04:35 <RILEY WARD - Last Filed: 06/04/20 05:48> - Laboratory Result Diagrams: 06/04/20 04:35 06/04/20 04:35 <EFREN SWENSON - Last Filed: 06/05/20 13:52> - Laboratory Result Diagrams: 06/04/20 04:35 06/04/20 04:35 - EKG Interpretation by Me EKG shows normal: Sinus rhythm Rate: Normal Rhythm: NSR When compared to previous EKG there are: Previous EKG unavailable <STEPHANIA KHOURY - Last Filed: 06/05/20 14:50> - Re-evaluation Re-evalutation: 06/04/20 05:48 Patient is medically cleared for psychiatric service (RILEY WARD) - Vital Signs Vital signs: Temp Pulse Resp BP Pulse Ox 98.1 F 77 16 152/86 H 89 L 06/04/20 16:09 06/04/20 16:09 06/04/20 16:09 06/04/20 16:09 06/04/20 16:09 - Laboratory Laboratory results interpreted by me: 06/04/20 06/04/20 06/04/20 04:35 04:35 05:40 Lymph % (Auto) 12.6 L Seg Neutrophils % 81.4 H Urine Protein 30 H Urine Ketones 20 H Urine Urobilinogen 4.0 H Urine Ascorbic Acid 20 H Salicylates < 1.0 L Acetaminophen < 10 L - EKG Interpretation by Me Additional EKG results interpreted by me: 06/05/20 14:49 Sinus rhythm with a rate of 68, QTc 409, no acute ischemic changes. (STEPHANIA KHOURY) Discharge <RILEY WARD - Last Filed: 06/04/20 05:48> <EFREN SWENSON - Last Filed: 06/05/20 13:52> <STEPHANIA KHOURY - Last Filed: 06/05/20 14:50> - Discharge Clinical Impression: Hallucination Condition: Stable Disposition: HOME, SELF-CARE Additional Instructions: You have been evaluated by both medical and behavioral health teams for psychosis. You have been deemed appropriate for discharge. While in the emergency department you received the following services/or had access to: Medical screening and assessment, nursing services, dietary services, pharmacological services, one-on-one counseling and/or psychotherapy, environmental services, and continuous observation by a patient senior safety support manager. Medication recommendations per [facility] contracted psychiatrist, Dr. Graham ABDUL, are as follows: Haldol 5mg twice a day and Cogentin once a day You should take these medications as prescribed until you follow up with your outpatient medication provider unless you experience negative side effects then return to the emergency department. Hallucinations You seem to be having hallucinations. Hallucinations are seeing, hearing, or feeling things that don't exist. These symptoms commonly occur with drug abuse and schizophrenia. Drugs like PCP, LSD, MDMA, peyote, and "psychedelic mushrooms" can cause frightening hallucinations. Users of methamphetamine or crack cocaine often see and feel bugs crawling on their skin. Patients with schizophrenia may hear voices that no one else can hear. The delusions of schizophrenia often involve conspiracies or relationships that are not real. When symptoms are due to drug abuse, the mental state usually improves as t he drug wears off. Someone you trust should be with you until you are better, to protect you and calm your fears. Tranquilizer medicine is helpful at controlling hallucinations, anxiety, and deluded thoughts. Get a proper diet and enough sleep. Most patients do very well when they get proper medical treatment and social support. You should return at once if your symptoms get worse, if you are having suicidal thoughts or thoughts about hurting others, or if you feel that you are in danger Follow up care: You are currently involved in medication management with [facility], however have not been in two months. You are recommended to follow up with [facility] or use the referral list for outpatient providers in the area and start services with facility of choice. You are recommended to not use illegal substances while taking psychiatric medications. You are highly encouraged to engage in medication management to assist with symptom management. You were provided psychoeducation on the benefits of medication management. You have been given a community outpatient referral list to include phone numbers for [facility] and [facility] mobile crisis. If you experience worsening or a significant change in your symptoms, notify the physician immediately, utilize mobile crisis, or return to the Emergency Department at any time for re-evaluation. Prescriptions: Benztropine Mesylate [Cogentin 1 mg Tablet] 1 mg PO DAILY #15 tablet Haloperidol [Haldol 5 mg Tablet] 5 mg PO BID #30 tablet Referrals: [facility] [Outside] - Follow up as needed [facility] [Outside] - Follow up as needed
[2020-06-04 05:25] LABS: ACETAMINOPHEN < 10 ug/mL (10-30); ALCOHOL < 10 mg/dL (NONE DETECTED); SALICYLATE < 1.0 mg/dL (2.0-20.0)
[2020-06-04 07:59] LABS: APPEARANCE,URINE CLEAR; BILIRUBIN,URINE NEGATIVE (NEGATIVE); COLOR,URINE YELLOW; GLUCOSE, URINE NEGATIVE (NEGATIVE); KETONES,URINE 20 mg/dL (NEGATIVE); LEUKOCYTE ESTERASE,URINE NEGATIVE (NEGATIVE); NITRITE,URINE NEGATIVE (NEGATIVE); PROTEIN,URINE 30 mg/dL (NEGATIVE); URINE SPECIFIC GRAVITY 1.033
[2020-06-04 08:13] LABS: URINE AMPHETAMINES SCREEN NEGATIVE; URINE BARBITURATES SCREEN NEGATIVE; URINE BENZODIAZEPINES SCREEN NEGATIVE; URINE COCAINE SCREEN NEGATIVE; URINE METHADONE SCREEN NEGATIVE; URINE PHENCYCLIDINE SCREEN NEGATIVE
[2020-06-04 08:14] LABS: URINE MARIJUANA (THC) SCREEN UNCONFIRMED POSITIVE
--- NOTE | 2020-06-04 13:31 | EKG REPORT ---
SEVERITY:- NORMAL ECG - SINUS RHYTHM : Confirmed by: Sapphire Yun MD 04-Jun-2020 13:30:39
--- NOTE | 2020-06-04 16:21 | ER Document Report ---
Doctor's Note Notes: 06/04/20 16:20 Patient's vital signs and previous labs, diagnostic images reviewed. Reviewed mental health notes, nurse's notes and previous providers notes. VSS. Pt is in no distress at this time. Denies any SI or HI, denying any hallucinations at this time General: A&Ox3. Answers questions appropriately. Heart: RRR Lungs: CTAB Psych: Flat affect A/P: Continue monitoring and rec's per MH. Normal diet We will continue to monitor 06/04/20 16:21
--- NOTE | 2020-06-04 17:15 | PSYCHOLOGICAL NOTE ---
Psych Note - Psych Note Date seen by psych provider: 06/04/20 Time seen by psych provider: 13:01 Psych Note: From [id number] Mother Kristine Rodriguez ([phone]) called to inquire about patient's status and care. She stated he was welcome home after he was stabilized. She reported "last night it sounded like he was hallucinating, he has not been himself, he has been in and out of reality, this type of thing has been going on for awhile not new." She reported he has been on so many different medications. She reported he was going to [facility] for outpatient services for awhile. She stated "he would go to his appointments but always say he felt like the medications caused seizures." Mother stated patient was at [facility] about 5 years ago, "they overmedicated him, he wouldn't event take pills when he got out, he is more likely to take shots versus pills now." Mother stated she has paperwork for [facility] so patient can follow up there but stated he needs some stabilization first. Mother started providing medication names that were not effective: Trihexythenidyl but mother had to end call due to taking care of child, was to call back, did but this physician underwriter was on another call, and every time tried to call back would not ring/could not hear anything. Called her from personal cell phone, no answer, left message with [facility]es station number.
--- NOTE | 2020-06-04 18:09 | PSYCHOLOGICAL NOTE ---
Psych Note - Psych Note Date seen by psych provider: 06/04/20 Time seen by psych provider: 11:11 Psych Note: [id number] Reason for Consult: psychosis Consent Permissions: Mother Kristine Rodriguez ([phone]) Patient is a 20 year old who presented to the [facility] ED today via EMS, petitioned for IVC for psychosis. Patient was a poor historian. He denies suicidal ideation, plan, and intent. He denies homicidal ideation, plan, and intent. Patient reports he called EMS due to a stranger sleeping in his house and states he did not want to know about this. Patients initial admittance to the ED reported hallucinations of demons in his home. Patient was positive for THC use. Patient has a history of Schizophrenia, but was unable to report his psychiatric medications and kept falling asleep during the assessment. He did report going to [facility] for medication management. Patient reports he lives with his mother and mother will be contacted for collateral. Collateral obtained by Behavioral Health team: From [phone] Mother Kristine Rodriguez ([phone]) called to inquire about patient's status and care. She stated he was welcome home after he was stabilized. She reported "last night it sounded like he was hallucinating, he has not been himself, he has been in and out of reality, this type of thing has been going on for a while not new." She reported he has been on so many different medications. She reported he was going to [facility] for outpatient services for a while. She stated "he would go to his appointments but always say he felt like the medications caused seizures." Mother stated patient was at [facility] about 5 years ago, "they overmedicated him, he wouldn't event take pills when he got out, he is more likely to take shots versus pills now." Mother stated she has paperwork for [facility] so patient can follow up there but stated he needs some stabilization first. Patient was alert and oriented to self, person, place, and time. He was able to report hallucinations, but was a poor historian otherwise. He was not able to report much about situation leading to ED and spoke very little. Mood was irritable and confused with congruent affect. He denied current SI/HI. Patient did not appear to be responding to internal stimuli as evidenced by fair eye contact and answering questions appropriately when addressed. Thought processes were not linear or organized as patient reports demons in his home. Conversational speech was within normal limits for rate, tone and prosody. Intellectual abilities are estimated to be below average. Attention and concentration is poor. Insight, judgment and impulse control were fair as evidenced by patient calling EMS to get the help he needed. Patient does not engage appropriately during evaluation and kept falling asleep when clinician was talking to him. Clinical Presentation: psychosis IVC Criteria per [place] GS 122C Dangerous to others Within the relevant past the individual No has inflicted or attempted to inflict or threatened to inflict serious bodily harm on another AND No that there is a reasonable probability that this conduct will be repeated. OR No has acted in such a way as to create a substantial risk of serious bodily harm to another AND No that there is a reasonable probability that this conduct will be repeated. OR No has engaged in extreme destruction of property AND NO that there is a reasonable probability that this conduct will be repeated. Previous episodes of dangerousness to others, when applicable, may be considered when determining reasonable probability of future dangerous conduct. Clear, cogent, and convincing evidence that an individual has committed a homicide in the relevant past is prima facie evidence of dangerousness to others. Dangerous to self Within the relevant past the individual has done any of the following: acted in such a way as to show ALL of the following: Yes The individual would be unable without care, supervision, and the continued assistance of others not otherwise available, to exercise self- control, judgment, and discretion in the conduct of the individual's daily responsibilities and social relations or to satisfy the individual's need for nourishment, personal or medical care, mcc, or self-protection and safety. He is not taking his psychiatric medications as prescribed and has been reporting hallucinations AND No There is a reasonable probability of the individual suffering serious physical debilitation within the near future unless adequate treatment is given. A showing of behavior that is grossly irrational, of actions that the individual is unable to control, of behavior that is grossly inappropriate to the situation, or of other evidence of severely impaired insight and judgment shall create a prima facie inference that the individual is unable to care for himself or herself. OR No has attempted suicide or threatened suicide AND No that there is a reasonable probability of suicide unless adequate treatment is given OR No has mutilated himself or herself or attempted to mutilate himself or herself AND No that there is a reasonable probability of serious self-mutilation unless adequate treatment is given. NOTE: Previous episodes of dangerousness to self, when applicable, may be considered when determining reasonable probability of physical debilitation, suicide, or self-mutilation. Medication recommendations per [facility] contracted psychiatrist, Dr. Graham ABDUL, are as follows: add Haldol 5mg bid and add Cogentin 1mg qd Impression\\plan: Patient is currently under a 24 hour petition. Medication changes have been made and patient will be re-evaluated in the morning to assess for a more appropriate state of mind. Patient was admitted to [facility] due to hallucinations of demons in his home. He is to be kept overnight for medication adjustments. Patient denies suicidal and homicidal ideations, plans, and intent. Patient will be re-evaluated in the morning. Dr. Briones was consulted to care management of this patient; attending physicians in agreement with recommendations and disposition.
[2020-06-04] MEDS: HALOPERIDOL 5 MG TABLET PO SCH (18:14)
[2020-06-04] MEDS: BENZTROPINE MESYLATE 1 MG TABLET PO SCH (18:14)
[2020-06-05] MEDS: BENZTROPINE MESYLATE 1 MG TABLET PO SCH (10:27)
[2020-06-05] MEDS: HALOPERIDOL 5 MG TABLET PO SCH (10:27)
--- NOTE | 2020-06-05 11:36 | ER Document Report ---
Doctor's Note Notes: 06/05/20 11:10 PHYSICAL EXAMINATION: GENERAL: Well-appearing and in no acute distress. HEAD: Atraumatic, normocephalic. EYES: sclera anicteric, conjunctiva are normal. ENT: nares patent. Moist mucous membranes. NECK: Normal range of motion, supple without lymphadenopathy LUNGS: CTAB and equal. No wheezes rales or rhonchi. HEART: Regular rate and rhythm without murmurs ABDOMEN: Soft, nontender, normal bowel sounds, no guarding. EXTREMITIES: Normal range of motion, no pitting edema. BACK: No CVA tenderness NEUROLOGICAL: Cranial nerves grossly intact. Normal speech. Normal gait. PSYCH: Normal mood, normal affect. SKIN: Warm, Dry, normal turgor, no rashes or lesions noted Patient appears medically clear for discharge or transfer pending behavioral health team disposition. Patient denies any concerns at this time. 06/05/20 14:48 Patient has been cleared from behavioral health team staff for discharge at this time. Patient is medically clear for discharge. Patient's mother will be picking him up today.
--- NOTE | 2020-06-05 13:47 | PSYCHOLOGICAL NOTE ---
Psych Note - Psych Note Date seen by psych provider: 06/05/20 Time seen by psych provider: 11:00 Psych Note: [id number] Re evaluation Patient was admitted to [facility] ED yesterday for hallucinations. Upon admission evaluation, patient was a poor historian. Today, patients mood is better and improved. Patient continues to deny suicidal and homicidal ideations, plan, and intent. He states he was hearing noises in his home and came to the ED. He reports being prescribed Haldol 25mg from [facility], but has not been in 2 months. He reports he was receiving medications from there, but did not want to get a shot anymore and he stopped going. States it was making the skin on his arm weak and he does not want to continue getting shots. He was recommended to go to a new doctor, but has not made an appointment. He denies any hallucinations overnight and states he feels better this morning. When asked about substance use, patient reports using marijuana regularly and states he used oxy about a month ago. IVC Criteria per [place] GS 122C Dangerous to others Within the relevant past the individual No has inflicted or attempted to inflict or threatened to inflict serious bodily harm on another AND No that there is a reasonable probability that this conduct will be repeated. OR No has acted in such a way as to create a substantial risk of serious bodily harm to another AND No that there is a reasonable probability that this conduct will be repeated. OR No has engaged in extreme destruction of property AND NO that there is a reasonable probability that this conduct will be repeated. Previous episodes of dangerousness to others, when applicable, may be considered when determining reasonable probability of future dangerous conduct. Clear, cogent, and convincing evidence that an individual has committed a homicide in the relevant past is prima facie evidence of dangerousness to others. Dangerous to self Within the relevant past the individual has done any of the following: acted in such a way as to show ALL of the following: No The individual would be unable without care, supervision, and the continued assistance of others not otherwise available, to exercise self- control, judgment, and discretion in the conduct of the individual's daily responsibilities and social relations or to satisfy the individual's need for nourishment, personal or medical care, long-term, or self-protection and safety. Patient was compliant with medication in the ED and states he will follow up with medication provider upon discharge; mother is part of plan of care AND No There is a reasonable probability of the individual suffering serious physical debilitation within the near future unless adequate treatment is given. A showing of behavior that is grossly irrational, of actions that the individual is unable to control, of behavior that is grossly inappropriate to the situation, or of other evidence of severely impaired insight and judgment shall create a prima facie inference that the individual is unable to care for himself or herself. OR No has attempted suicide or threatened suicide AND No that there is a reasonable probability of suicide unless adequate treatment is given OR No has mutilated himself or herself or attempted to mutilate himself or herself AND No that there is a reasonable probability of serious self-mutilation unless adequate treatment is given. NOTE: Previous episodes of dangerousness to self, when applicable, may be considered when determining reasonable probability of physical debilitation, suicide, or self-mutilation. Medication recommendations per [facility]'s contracted psychiatrist are as follows (per 06/04/2020 note): Add Haldol 5mg big Add Cogentin 1mg qd Impression\plan: Patient is cleared from acute psychiatric services. Recommendation to [facility] 24 Hour Petition for Evaluation. He is not a danger to self or others. He came into the ED due to hallucinations. Patient did not engage appropriately upon admission and was a poor historian. Today, patient is more appropriately engaging during evaluation. He reports not hallucinations and feels better today. He states he was hearing voices and has not been to [facility] for his medication in about 2 months. Patient reports using marijuana regularly and states he last used oxy about a month ago. He was recommended to follow up with [facility] for medications and was given a community referral list for other outpatient providers, if needed. He was recommended to not use illegal substances while taking psychiatric medications. Patient resides with his mother and she will be picking him up to take him home with her upon discharge. He was also given referrals for [facility] and [facility] mobile crisis. Patient was informed is he experiences worsening or a significant change in symptoms, notify the physician immediately, utilize mobile crisis, or return to the Emergency Department at any time for re-evaluation. Dr. Briones was consulted to care management of this patient; attending physicians in agreement with recommendations and disposition.
[2020-06-05 15:49] VITALS: BP 120/80
== END 2020-06-05 15:49 | disposition home or self-care (01) ==
LOC: ER 03:07
DX: F20.9 Schizophrenia, unspecified (principal); M25.511 Pain in right shoulder; F12.10 Cannabis abuse, uncomplicated
CPT/HCPCS: 93005; 99284; 36415; 80307 ×4; 85025; 80053; 81001; 93010; J3490 ×4